=== PATIENT | male | born 1960 | race Caucasian/White ===

== ENCOUNTER 2022-08-23 04:17 | Inpatient (IN) | payer MEDICARE, SELFPAY ==
[2022-08-23] VITALS (49 sets, daily range): BP systolic 114–146; BP diastolic 74–116; PULSE 90–141; RESP 17–48; TEMP 36.3–37; O2SAT 87–100; BMI 41.6; BMI 48.5
--- NOTE | 2022-08-23 04:23 | ECG_ITS ---
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
--- NOTE | 2022-08-23 04:23 | ED.GENADUL1 ---
HPI - General Adult General Chief complaint: Overdose Stated complaint: pain Time Seen by Provider: 08/23/22 04:23 History of Present Illness HPI narrative: the patient was brought to us by the EMS for the suspected opiate and alcohol overdose, if he received a call about the patient earlier today for a call abuse but at that time the patient did not go to the Emergency Room but the son who is paraplegic cold the EMS because the patient is abusing alcohol. All day, upon arrival the patient was not conscious and he was provided with Narcan according to the EMS and he woke up after it. Presenting to us patient is not fully a week although he only responds to painful stimuli is not able to provide us with any history, when painful stimuli induced the patient move his arms and on and move his head but he does not speak The patient review of systems able to be obtained due to the patient's clinical condition Related Data Allergies Allergy/AdvReac Type Severity Reaction Status Date / Time Unable to Assess Allergy Verified 08/23/22 06:55 Exam Narrative Exam Narrative: Nurses notes and vital signs reviewed and patient is not hypoxic. General: the patient is disheveled sleepy and his left eye shows obvious conjunctivitis Skin: dry mucous membrane with skin that is dry with multiple skin changes shows disheveled and lack of care No rash. Head: Normocephalic, atraumatic. Neck: Supple, non-tender. Eye: Pupils are equal, the patient left eye examination showed that she had conjunctivitis in the left lower half of the conjunctiva visit with a small abrasion to the left eyes well mostly the cornea, left lower eyelid inflammation as well Ears, Nose, Mouth, and Throat: TM are clear, no nasal mucosal hypertrophy. Oral mucosa is dry no posterior oropharynx erythema, uvula is mid-line,. very bad dental hygiene with multiple decayed teeth and obvious carries Cardiovascular: irregular Rate and Rhythm without murmur, gallop or rub. Respiratory: No accessory muscle use or respiratory distress. Lungs are clear to auscultation, no wheezing, rales or rhonchi Chest Wall: no tenderness Back: at the decubital area the patient have an area of redness concerning for a stage I ulcer is measuring almost 10 x 15 cm Musculoskeletal: normal ROM, no calf or popliteal tenderness, no lower extremity edema/swellingthe patient has skin changesthat is chronic and multiple abrasions that are healing GI: Abdomen is soft, non-distended. Normal bowel sounds. No masses appreciated. No tenderness to palpation. No rebound, guarding, or rigidity noted. Neurological: the patient [place] Coma Scale is above H as he is able to respond to painful stimuli,by moving upper extremity in both sided and moaning Constitutional Vital Signs - 24 hr 08/23/22 04:19 08/23/22 06:39 08/23/22 04:18 Temperature 97.6 F Pulse Rate 138 H Pulse Rate [Monitor] 139 H Respiratory Rate 40 H 43 H Blood Pressure 144/110 H Pulse Oximetry 98 99 99 Oxygen Delivery Method Room Air Nasal Cannula Oxygen Delivery Flow Rate 2 08/23/22 04:52 08/23/22 04:53 08/23/22 05:00 Temperature Pulse Rate 134 H 121 H 118 H Pulse Rate [Monitor] Respiratory Rate 47 H 44 H 44 H Blood Pressure 145/100 H 128/101 H Pulse Oximetry 99 99 98 Oxygen Delivery Method Oxygen Delivery Flow Rate 08/23/22 05:10 08/23/22 05:20 08/23/22 05:31 Temperature Pulse Rate 114 H 128 H 125 H Pulse Rate [Monitor] Respiratory Rate 42 H 41 H Blood Pressure 145/109 H 139/107 H 138/113 H Pulse Oximetry 98 99 89 L Oxygen Delivery Method Oxygen Delivery Flow Rate 08/23/22 05:42 08/23/22 05:50 08/23/22 06:00 Temperature Pulse Rate 126 H 116 H Pulse Rate [Monitor] Respiratory Rate 39 H Blood Pressure 136/106 H 136/92 H 132/99 H Pulse Oximetry 87 L 97 Oxygen Delivery Method Oxygen Delivery Flow Rate 08/23/22 06:16 08/23/22 06:17 08/23/22 06:21 Temperature Pulse Rate 141 H 128 H 122 H Pulse Rate [Monitor] Respiratory Rate 33 H 41 H 43 H Blood Pressure 140/116 H 134/107 H Pulse Oximetry 99 99 Oxygen Delivery Method Oxygen Delivery Flow Rate 08/23/22 06:31 Temperature Pulse Rate 114 H Pulse Rate [Monitor] Respiratory Rate 40 H Blood Pressure 122/87 H Pulse Oximetry 99 Oxygen Delivery Method Oxygen Delivery Flow Rate Course Vital Signs Vital signs: Vital Signs Pulse Rate 138 H 08/23/22 04:18 Respiratory Rate 43 H 08/23/22 04:18 Blood Pressure 144/110 H 08/23/22 04:18 Pulse Oximetry 99 08/23/22 04:18 Temperature 97.6 F 08/23/22 04:19 Pulse Rate 114 H 08/23/22 06:31 Respiratory Rate 40 H 08/23/22 06:31 Blood Pressure 122/87 H 08/23/22 06:31 Pulse Oximetry 99 08/23/22 06:39 Oxygen Delivery Method Nasal Cannula 08/23/22 06:39 Oxygen Delivery Flow Rate 2 08/23/22 06:39 Medical Decision Making MDM Narrative Medical decision making narrative: initially the patient received one dose of Narcan and in addition to the dose that he received by the EMS 2 mg,that did not help in improving his mental status the patient was moaning to painful stimuli moving his upper extremity but he was not providing history his [place] Coma Scale was still about eight and he also had a CT that shows adequate oxygenation He was put in 3 L nasal cannula as supportive care he also had a CBC that showed no acute significant pathology and the chemistry showing hypokalemia the patient ABG showed no acidosis but some alkalosis the patient had not name And he does not have an elevated alcohol level. He did have methamphetamine as well as as benzo in his system we could obtain the patient history from his last visit here was was a few years ago that time the patient has a history of atrial fibrillation and takign Xeralto 10 mg po daily EKG and they are showing atrial fibrillation with a heart rate of [address] elevation or depression was noted that the patient only had his son at home who is paraplegic according to the EMS and we tried calling his phone number available in the system and it was not valid then look into pt phone info we could find Miller phone no [phone] ----called and no set voice mail pt also had hx of seizure and closed head injury 2019 , hx of depression and PTSD and bilateral hip repalcement pt has multiple active issues Benzo abuse and possible overdose ----supportive care as Flumaznil can pt the pt at risk of seizure and he already have hx of that AMS -----possible drug abuse cause but awaiting CT head result left eye conjunctivitis ------erythromycin ointment afib with RVR ----continue diltiazem for now as pt has hx of Afib pt also has the social issue of being dissheveled and having poor home care and no adequate support at home ----decubital ulcer stage I update *------pt mental status improved as his was moaning when moved and when asked about pain in his back he is answered yes -----we tried obaitning records from [facility] and [facility] pt son ( miller ) called back ---I tried getting info about the pt presentation and he was not cooperative as he kept repeating that the pt was drinking alcohol all day and he referred to his old truck injury in 2007 , i explaiend to the son that i need to get more info as hs alcohol test was negative ,pt was rude and made rude comment the hospital and then said ( then you need to do better testing and hung up on me ) pt son did mention 2 episodes of fall in the last week where his father didnt hit his head right now awaiting the pt CT head negative for acute pathology pt case discussed with Dr Nation and he will be admitted Lab Data Labs: Lab Results 08/23/22 08/23/22 Range/Units 04:23 04:50 WBC 6.7 (4.0-11.0) 10^3/uL RBC 4.23 L (4.70-6.10) 10^6/uL Hgb 13.7 L (14.0-18.0) g/dL Hct 41.6 L (42.0-54.0) % MCV 98.3 H (80.0-94.0) fL MCH 32.4 (25.9-34.0) pg MCHC 32.9 (29.9-35.2) g/dL RDW 18.1 H (11.0-15.0) % Plt Count 363 (150-450) 10^3/uL MPV 8.6 L (9.5-13.5) fL Neut % (Auto) 65.5 (43.0-75.0) % Lymph % (Auto) 21.2 (20.5-60.0) % [place] % (Auto) 8.8 (1.7-12.0) % Eos % (Auto) 3.1 (0.9-7.0) % Baso % (Auto) 1.0 (0.2-2.0) % Neut # (Auto) 4.4 (1.4-6.5) 10^3/uL Lymph # (Auto) 1.4 (1.2-3.8) 10^3/uL [place] # (Auto) 0.6 (0.3-0.8) 10^3/uL Eos # (Auto) 0.2 (0.0-0.7) 10^3/uL Baso # (Auto) 0.1 (0.0-0.1) 10^3/uL Abs Immat Gran (auto) 0.03 (0.00-0.03) 10^3/uL Imm/Tot Granulo (auto) 0.4 (0.0-0.5) % PT 10.9 (9.0-11.6) sec INR 1.03 Puncture Site Lr ABG pH 7.484 H (7.350-7.450) ABG pCO2 36.1 (35.0-45.0) mmHg ABG pO2 79.9 L (80.0-100.0) mmHg ABG HCO3 27.1 H (22.0-26.0) mmol/L ABG O2 Saturation 97.4 % ABG Base Excess 3.7 H (-2.0-2.0) mmol/L Sj Test Positive (POSITIVE) O2 Liters/Min 1.5 Sodium 139 (136-145) mmol/L Potassium 3.1 L (3.5-5.1) mmol/L Chloride 110 H (98-107) mmol/L Carbon Dioxide 26.5 (21.0-32.0) mmol/L Anion Gap 5.6 BUN 6.0 L (7.0-18.0) mg/dL Creatinine 0.76 (0.70-1.30) mg/dL Est GFR ( Amer) >60 (>=60) Est GFR (Non-Af Amer) >60 (>=60) BUN/Creatinine Ratio 7.9 Glucose 103 (74-106) mg/dL Lactate 2.0 (0.4-2.0) mmol/L Calcium 8.4 L (8.5-10.1) mg/dL Total Bilirubin 0.8 (0.2-1.0) mg/dL AST 49 H (15-37) U/L ALT 20 (16-63) U/L Alkaline Phosphatase 97 (46-116) U/L Total Protein 7.0 (6.4-8.2) g/dL Albumin 2.7 L (3.4-5.0) g/dL Globulin 4.3 g/dL Albumin/Globulin Ratio 0.6 Salicylates <2.8 (<=19.9) mg/dL Urine Opiates Screen Negative (NEGATIVE) Ur Buprenorphine Scrn Negative (NEGATIVE) Ur Oxycodone Screen Negative (NEGATIVE) Urine Methadone Screen Negative (NEGATIVE) Ur Propoxyphene Screen Negative (NEGATIVE) Acetaminophen <2.0 L (10.0-30.0) ug/mL Ur Barbiturates Screen Negative (NEGATIVE) U Tricyclic Antidepress Negative (NEGATIVE) Ur Phencyclidine Scrn Negative (NEGATIVE) Ur Amphetamines Screen Negative (NEGATIVE) U Methamphetamines Scrn Positive A (NEGATIVE) U Benzodiazepines Scrn Positive A (NEGATIVE) Urine Cocaine Screen Negative (NEGATIVE) U Cannabinoids Screen Positive A (NEGATIVE) Ethanol Quant <3 mg/dL ECG Data Attestation: I personally reviewed and interpreted this ECG as follows: Interpretation: afib with RVR with heart rate of [address] elevation or depression Critical Care Time Critical Care Time Critical Care Time: Yes Total Critical Care Time: 60 Attestation: multple checks due to AMS Discharge Plan Discharge Chief Complaint: Overdose Clinical Impression: Benzodiazepine abuse, Acute conjunctivitis, left eye, Methamphetamine abuse, AMS (altered mental status), Acute hypokalemia Patient Disposition: Admitted As Inpatient Time of Disposition Decision: 07:03 Condition: Fair Referrals: HERBIE ELLINGTON [Primary Care Provider] - 1 week
[2022-08-23] MEDS: NALOXONE HCL 2 MG/2 ML SYRINGE IV (04:25)
--- NOTE | 2022-08-23 04:30 | XR_ITS ---
The [address] [address] Patient Name: CECY ZAIDI MRN: [id number] date: 1960 Sex: M Assigned Patient Location: ER Current Patient Location: ER Accession/Order Number: [id number] Exam Date: 08/23/2022 04:45 Report Date: 08/23/2022 05:38 At the request of: JARED HAQUE Procedure: XR chest 1V EXAM: XR chest 1V HISTORY: AMS COMPARISON: 03/27/2021. TECHNIQUE: Chest X-ray, 1 view. FINDINGS: The patient is rotated which limits comparison. Support devices: Right jugular approach intravenous catheter terminates near the cavoatrial junction. Lungs/pleura: Low volumes accentuate the lung markings. No definite consolidation, effusion, or pneumothorax. Heart and mediastinum: Tortuous and calcified thoracic aorta. Slightly more prominent cardiac and mediastinal contours. Low lung volumes with prominence of the lung markings. No dense consolidation or effusion. Bones: No acute abnormality identified. IMPRESSION: 1. Low lung volumes accentuate the lung markings. Dependent hazy opacities are favored to be hypoventilatory in nature over infiltrate. 2. Mildly increased prominence of the cardiac mediastinal silhouette is likely accentuated by pulmonary hypoexpansion. Repeat examination in neutral position could exclude mediastinal pathology. Electronically authenticated by: KYRIE TOPETE Date: 08/23/2022 05:38
[2022-08-23 04:48] LABS: Basophils Absolute Auto 0.1 10^3/uL (0.0-0.1); Eosinophils Absolute Auto 0.2 10^3/uL (0.0-0.7); Eosinophils Percent Auto 3.1 % (0.9-7.0); Hematocrit 41.6 % (42.0-54.0); Hemoglobin 13.7 g/dL (14.0-18.0); Immature Granulocytes Abs Auto 0.03 10^3/uL (0.00-0.03); Immature Granulocytes Pct Auto 0.4 % (0.0-0.5); Lymphocytes Absolute Auto 1.4 10^3/uL (1.2-3.8); Lymphocytes Percent Auto 21.2 % (20.5-60.0); Mean Corpuscular HGB Conc 32.9 g/dL (29.9-35.2); Mean Corpuscular Hemoglobin 32.4 pg (25.9-34.0); Mean Corpuscular Volume 98.3 fL (80.0-94.0); Mean Platelet Volume 8.6 fL (9.5-13.5); Monocytes Absolute Auto 0.6 10^3/uL (0.3-0.8); Monocytes Percent Auto 8.8 % (1.7-12.0); Neutrophils Absolute Auto 4.4 10^3/uL (1.4-6.5); Neutrophils Percent Auto 65.5 % (43.0-75.0); Platelet Count 363 10^3/uL (150-450); Red Blood Count 4.23 10^6/uL (4.70-6.10); Red Cell Distribution Width 18.1 % (11.0-15.0); White Blood Count 6.7 10^3/uL (4.0-11.0)
[2022-08-23 04:55] LABS: ABG PCO2 36.1 mmHg (35.0-45.0); Base Excess ABG 3.7 mmol/L (-2.0-2.0); HCO3 ABG 27.1 mmol/L (22.0-26.0); Oxygen Saturation ABG 97.4 %; PO2 ABG 79.9 mmHg (80.0-100.0); pH ABG 7.484 (7.350-7.450)
[2022-08-23 04:56] LABS: Allen Test POSITIVE (POSITIVE); Liters per Minute 1.5; O2 Mode NASAL CANNULA; Puncture Site LR
[2022-08-23 04:59] LABS: Ethanol <3 mg/dL
[2022-08-23] MEDS: 0.9 % SODIUM CHLORIDE 1,000 ML 999 ML (05:00)
[2022-08-23 05:03] LABS: Anion Gap 5.6; Carbon Dioxide 26.5 mmol/L (21.0-32.0); Chloride 110 mmol/L (98-107); Glucose 103 mg/dL (74-106); Potassium 3.1 mmol/L (3.5-5.1); Salicylate <2.8 mg/dL (<=19.9); Sodium 139 mmol/L (136-145)
[2022-08-23 05:04] LABS: Alanine Aminotransferase 20 U/L (16-63); Albumin Globulin Ratio 0.6; Albumin Level 2.7 g/dL (3.4-5.0); Alkaline Phosphatase 97 U/L (46-116); Aspartate Amino Transferase 49 U/L (15-37); BUN Creatinine Ratio 7.9; Bilirubin Total 0.8 mg/dL (0.2-1.0); Calcium 8.4 mg/dL (8.5-10.1); Cannabinoid Screen Urine POSITIVE (NEGATIVE); Estimated GFR (African America >60 (>=60); Estimated GFR (Non-African Ame >60 (>=60); Globulin 4.3 g/dL; Phencyclidine Screen Urine NEGATIVE (NEGATIVE)
[2022-08-23 05:05] LABS: Amphetamine Screen Urine NEGATIVE (NEGATIVE); Barbiturates Screen Urine NEGATIVE (NEGATIVE); Benzodiazepines Screen Urine POSITIVE (NEGATIVE); Buprenorphine Screen Urine NEGATIVE (NEGATIVE); Cocaine Screen Urine NEGATIVE (NEGATIVE); Methadone Screen Urine NEGATIVE (NEGATIVE); Methamphetamines Screen Urine POSITIVE (NEGATIVE); Opiate Screen Urine NEGATIVE (NEGATIVE); Oxycodone Screen Urine NEGATIVE (NEGATIVE); Tricyclic Antidepressant Urine NEGATIVE (NEGATIVE)
--- NOTE | 2022-08-23 05:06 | PC.NURSE ---
ems called yesterday morning for patient drinking. patient [id number] to come to ER. son called ems now patient was lathargic. ems gave 0.5mg narcan. they state patient has been drinking all day. patient arrived at ER unresponsive. patient makes some jerking movements with pain ( abgs, Iv start). patient has increased respirations with thick oral secretions and what apears to be chewing tobacco. Patient was suctioned, LAbs drawn, second IV site obtained, EKG and cardiac monitorinf, placed on 2l nasal cannnula, 2mg narcan given IV. Rashid was placed with UA obtained. NS 0.9%
[2022-08-23 05:10] LABS: Acetaminophen <2.0 ug/mL (10.0-30.0)
--- NOTE | 2022-08-23 05:10 | CT_ITS ---
The [address] [address] Patient Name: CECY ZAIDI MRN: [id number] date: 1960 Sex: M Assigned Patient Location: ER Current Patient Location: ER Accession/Order Number: [id number] Exam Date: 08/23/2022 06:10 Report Date: 08/23/2022 06:34 At the request of: JARED HAQUE Procedure: CT head/brain wo con INDICATION: 62 years old; Male. Change in mental status. History of alcohol and drug use. TECHNIQUE: CT Head (ax/cor/sag reformats). Ionizing radiation dose reduced via iterative reconstruction/FBP blend and body size kV/mA adjustment. Comparison: None FINDINGS: POSTOPERATIVE CHANGES: BP shunt catheter noted which enters from the right posteriorly and projects through the atrium and body of the right lateral ventricle. The tip is noted in the body of the left lateral ventricle. The ventricular system is nondilated. BRAIN PARENCHYMA: There is bilateral frontal encephalomalacia. This pattern is most consistent with old trauma. No intraparenchymal or extra-axial hemorrhage. No mass effect. No midline shift or herniation. Normal hunt/white differentiation. VENTRICLES/EXTRA-AXIAL SPACES: Nondilated. SINUSES/MASTOIDS: Mucoperiosteal thickening in the frontal and ethmoid sinuses on the left. Mucoperiosteal thickening in the left maxillary sinus. There is soft tissue thickening of the nasal turbinates on the left. Secretions are present in the nasopharynx. Nasal septal deviation to the right with spur formation. Mastoid air cells are clear. MSK: No displaced or depressed calvarial fracture is noted. There is an incomplete lucency present within the occipital bone on the left which may represent an old healed fracture. OTHER: No hyperdense intraluminal thrombus is seen. IMPRESSION: 1. No acute intracranial abnormality. No hemorrhage or mass effect. 2. Bifrontal encephalomalacia. 3. Ventricular catheter enters from the right projects through the body the right lateral ventricle with its tip in the body of the left lateral ventricle. The ventricular system is nondilated. Electronically authenticated by: DIDIER STONE Date: 08/23/2022 06:34
--- NOTE | 2022-08-23 05:23 | PC.NURSE ---
Ems was called to the home yesterday morning for patient drinking. patient refused transport to the hospital at that time. Son called EMS this morning because patient was lethargic. According to EMS patient son stated patient had been drinking all day and does heroin. Ems started a line in the Right hand and gave 0.5mg IV narcan. Patient arrived to the ER unresponsive, patient makes some jerking movements with pain (iv start, abg). 2nd line was established, blood obtained. Rashid placed and UA obtained. EKG obtained and patient placed on cardiac monitoring. Placed on 2l NC, 2mg IV narcan given. Rashid was placed and UA obtained. NS 0.9% IV hung.
[2022-08-23 05:25] LABS: INR 1.03; Prothrombin Time 10.9 sec (9.0-11.6)
--- NOTE | 2022-08-23 06:28 | PC.NURSE ---
small bugs noted crawling and jumping on patient. staff gowned before taking patient to CT. Patient yelled ouch, my back when being moved from CT to bed. patient then did not respond to voice only painful stimuli
[2022-08-23] MEDS: ERYTHROMYCIN OP OINT 0.5% 1 GM TUBE OP (07:07)
[2022-08-23] MEDS: 0.9 % SODIUM CHLORIDE 1,000 ML 1000 ML IV (07:18)
[2022-08-23 07:39] LABS: Bilirubin Urine NEGATIVE (NEGATIVE); Blood Urine NEGATIVE (NEGATIVE); Clarity Urine CLEAR (CLEAR); Color Urine LT. YELLOW (YELLOW); Glucose Urine UA NEGATIVE (NEGATIVE); Ketones Urine NEGATIVE (NEGATIVE); Leukocyte Esterase Urine NEGATIVE (NEGATIVE); Nitrite Urine NEGATIVE (NEGATIVE); Protein Urine NEGATIVE (NEG/TRACE); Specific Gravity Urine <=1.005 (1.005-1.025); Urobilinogen Urine 0.2 EU/dL (0.2-1.0); pH Urine 6.5 (5.0-9.0)
[2022-08-23 07:42] LABS: Urine Microscopic Indicated NO
--- NOTE | 2022-08-23 09:26 | PC.NURSE ---
Pt arrived from ED with RN, no family to assist with answering questions. Pt does respond to painful touch, able to state having lower abdominal pain that is ongoing. Lethargic and difficult to keep awake. Respirations are abdominal open mouth with abdominal muscle usage. Speech is garbled, does state he used alcohol and marijuana but nothing hard , was unable to elaborate further. Not able to complete all questions for admission assessment.
[2022-08-23] MEDS: ENOXAPARIN SODIUM 40 MG/0.4 ML SYRINGE SUBQ (09:38)
[2022-08-23] MEDS: LACTATED RINGER'S SOLUTION 1,000 ML 125 ML IV ×2 (09:38→17:19)
--- NOTE | 2022-08-23 10:09 | PC.NURSE ---
Pt non verbal and unable to obtain information.
--- NOTE | 2022-08-23 10:53 | PC.NURSE ---
Cleansed with water and soap, applied barrier cream. Positioned to side with pillows.
--- NOTE | 2022-08-23 14:01 | P.HP_ITS ---
H&P: HPI History of Present Illness Chief complaint: pain Narrative: Patient was brought into ED for suspected polysubstance use and drug overdose. EMS was called by his son who is paraplegic for possible drug overdose by the patient. At home, patient was unresponsive and woke up right away after Narcan given my EMT. Patient was also reportedly drinking heavily. On w/u in ED, he was in afib with RVR, unresponsive and would wake up after narcan administration and go back right away to deep sleep. He was also noted to be disheveled, with poor hygiene, fleas noted on his cloths and skin, and also had evidence of left eye conjunctivitis. Patient's urine tested positive for Methamphetamine, THC and benzodiazepines but when he woke up briefly, he admitted to using Fentanyl too. When I evaluated him in ICU - he was comfortable, obtunded and I was unable to obtain any meaningful information from him. Review of Systems ROS Status of ROS unobtainable due to mental status [facility] Medical History (Updated 08/23/22 @ 14:22 by Shaikh Rios MD) Social History (Updated 08/23/22 @ 14:09 by Shaikh Rios MD) Within the past year, how often did you have a drink containing alcohol: 4 or more times a week Within the past year, how many standard drinks containing alcohol did you have on a typical day: 10 or more Within the past year, how often did you have six or more drinks on one occasion: daily or almost daily Total score: 12 Score interpretation: A score of 4 or more indicates drinking is likely to affect patient's safety. Smoking status: Current every day smoker Non-prescribed substance use: cannabis (any form), crack/cocaine, amphetamines/methamphetamines, sedatives/tranquilizers and opiods/painkillers Meds Home Medications and Allergies Allergies Allergy/AdvReac Type Severity Reaction Status Date / Time Unable to Assess Allergy Verified 08/23/22 06:55 Exam Constitutional Vital Signs - 24 hr 08/23/22 04:19 08/23/22 06:39 08/23/22 04:18 Temperature 97.6 F Pulse Rate 138 H Pulse Rate [Monitor] 139 H Respiratory Rate 40 H 43 H Blood Pressure 144/110 H Blood Pressure [Left Arm] Pulse Oximetry 98 99 99 Oxygen Delivery Method Room Air Nasal Cannula Oxygen Delivery Flow Rate 2 08/23/22 04:52 08/23/22 04:53 08/23/22 05:00 Temperature Pulse Rate 134 H 121 H 118 H Pulse Rate [Monitor] Respiratory Rate 47 H 44 H 44 H Blood Pressure 145/100 H 128/101 H Blood Pressure [Left Arm] Pulse Oximetry 99 99 98 Oxygen Delivery Method Oxygen Delivery Flow Rate 08/23/22 05:10 08/23/22 05:20 08/23/22 05:31 Temperature Pulse Rate 114 H 128 H 125 H Pulse Rate [Monitor] Respiratory Rate 42 H 41 H Blood Pressure 145/109 H 139/107 H 138/113 H Blood Pressure [Left Arm] Pulse Oximetry 98 99 89 L Oxygen Delivery Method Oxygen Delivery Flow Rate 08/23/22 05:42 08/23/22 05:50 08/23/22 06:00 Temperature Pulse Rate 126 H 116 H Pulse Rate [Monitor] Respiratory Rate 39 H Blood Pressure 136/106 H 136/92 H 132/99 H Blood Pressure [Left Arm] Pulse Oximetry 87 L 97 Oxygen Delivery Method Oxygen Delivery Flow Rate 08/23/22 06:16 08/23/22 06:17 08/23/22 06:21 Temperature Pulse Rate 141 H 128 H 122 H Pulse Rate [Monitor] Respiratory Rate 33 H 41 H 43 H Blood Pressure 140/116 H 134/107 H Blood Pressure [Left Arm] Pulse Oximetry 99 99 Oxygen Delivery Method Oxygen Delivery Flow Rate 08/23/22 06:31 08/23/22 06:31 08/23/22 06:41 Temperature Pulse Rate 114 H 129 H 110 H Pulse Rate [Monitor] Respiratory Rate 40 H 40 H 42 H Blood Pressure 122/87 H 122/87 H 117/93 H Blood Pressure [Left Arm] Pulse Oximetry 99 99 99 Oxygen Delivery Method Oxygen Delivery Flow Rate 08/23/22 06:51 08/23/22 07:00 08/23/22 07:12 Temperature Pulse Rate 109 H 113 H 117 H Pulse Rate [Monitor] Respiratory Rate 42 H 39 H 43 H Blood Pressure 133/97 H 129/101 H 119/84 H Blood Pressure [Left Arm] Pulse Oximetry 99 98 99 Oxygen Delivery Method Oxygen Delivery Flow Rate 08/23/22 07:20 08/23/22 07:31 08/23/22 07:41 Temperature Pulse Rate 111 H 106 H 120 H Pulse Rate [Monitor] Respiratory Rate 38 H 38 H 38 H Blood Pressure 146/101 H 135/110 H 130/99 H Blood Pressure [Left Arm] Pulse Oximetry 96 96 96 Oxygen Delivery Method Oxygen Delivery Flow Rate 08/23/22 07:51 08/23/22 08:00 08/23/22 08:10 Temperature Pulse Rate 109 H 118 H 121 H Pulse Rate [Monitor] Respiratory Rate 39 H 36 H 38 H Blood Pressure 142/96 H 129/111 H 146/106 H Blood Pressure [Left Arm] Pulse Oximetry 97 96 96 Oxygen Delivery Method Oxygen Delivery Flow Rate 08/23/22 08:10 08/23/22 09:00 08/23/22 09:10 Temperature 97.8 F Pulse Rate 123 H 111 H Pulse Rate [Monitor] 110 H Respiratory Rate 40 H 32 H 32 H Blood Pressure 146/106 H Blood Pressure [Left Arm] 126/99 H Pulse Oximetry 97 98 98 Oxygen Delivery Method Nasal Cannula Nasal Cannula Oxygen Delivery Flow Rate 2 2 08/23/22 09:57 08/23/22 08:50 08/23/22 10:59 Temperature Pulse Rate 104 H 119 H Pulse Rate [Monitor] 104 H Respiratory Rate 32 H Blood Pressure Blood Pressure [Left Arm] Pulse Oximetry 98 96 Oxygen Delivery Method Oxygen Delivery Flow Rate 08/23/22 12:17 08/23/22 12:22 08/23/22 12:22 Temperature 98.6 F Pulse Rate 97 H 103 H Pulse Rate [Monitor] 103 H Respiratory Rate 24 24 Blood Pressure Blood Pressure [Left Arm] 114/81 H Pulse Oximetry 100 99 Oxygen Delivery Method Nasal Cannula Oxygen Delivery Flow Rate 2 08/23/22 08:21 08/23/22 08:43 08/23/22 08:46 Temperature Pulse Rate 118 H 119 H 114 H Pulse Rate [Monitor] Respiratory Rate 26 H 45 H 32 H Blood Pressure 129/107 H 126/99 H Blood Pressure [Left Arm] Pulse Oximetry 98 97 Oxygen Delivery Method Oxygen Delivery Flow Rate 2 08/23/22 08:46 08/23/22 12:01 08/23/22 13:06 Temperature Pulse Rate 126 H 106 H 93 H Pulse Rate [Monitor] Respiratory Rate 48 H 31 H Blood Pressure 114/88 H Blood Pressure [Left Arm] Pulse Oximetry 99 99 Oxygen Delivery Method Oxygen Delivery Flow Rate Documenting provider has reviewed patient's vital signs: yes Exam limitations: altered mental status General appearance: disheveled Nutritional appearance: obese Orientation/consciousness: Yes obtunded HENMT Common normals: normocephalic and head/scalp atraumatic Eye General eye: other (left eye red/with purulence noted on exam ) Conjunctiva: conjunctiva abnormal left Respiratory Common normals: normal respiratory effort, no use of accessory muscles and clear to auscultation bilaterally Other: audible upper airway secretions requiring oral suction Cardio Common normals: S1 normal heart sound, S2 normal heart sound and no murmurs Rhythm: abnormal rhythm irregularly irregular GI Common normals: Normal to inspection, nondistended, normoactive bowel sounds present, soft to palpation, non-tender and no hepatosplenomegaly Neuro Yolanda Coma Scale: document GCS findings Yolanda coma scale eye opening: To sound Yolanda coma scale verbal response: Confused Yolanda coma scale motor response: None Noble coma scale total score: 8 Common normals: moves all extremities Sensorium/orientation: obtunded Meningeal signs: no meningeal signs Speech: abnormal speech Psych Appearance: unkempt and disheveled Speech: incoherent Thought process: confused Insight: poor Judgement: poor Results Labs Labs: Short CBC 08/23/22 Range/Units 04:23 WBC 6.7 (4.0-11.0) 10^3/uL Hgb 13.7 L (14.0-18.0) g/dL Hct 41.6 L (42.0-54.0) % Plt Count 363 (150-450) 10^3/uL BMP 08/23/22 04:23 Sodium 139 Potassium 3.1 L Chloride 110 H Carbon Dioxide 26.5 BUN 6.0 L Creatinine 0.76 Glucose 103 Calcium 8.4 L Liver Function 08/23/22 Range/Units 04:23 Total Bilirubin 0.8 (0.2-1.0) mg/dL AST 49 H (15-37) U/L ALT 20 (16-63) U/L Alkaline Phosphatase 97 (46-116) U/L Albumin 2.7 L (3.4-5.0) g/dL Urine 08/23/22 Range/Units 04:33 Urine Color Lt. yellow (YELLOW) Urine Clarity Clear (CLEAR) Urine pH 6.5 (5.0-9.0) Ur Specific [place] <=1.005 A (1.005-1.025) Urine Protein Negative (NEG/TRACE) mg/dL Urine Glucose (UA) Negative (NEGATIVE) mg/dL ABG ABG results: 08/23/22 04:50 ABG pH 7.484 H ABG pCO2 36.1 ABG pO2 79.9 L ABG HCO3 27.1 H ABG O2 Saturation 97.4 ABG Base Excess 3.7 H Assessment and Plan Assessment and Plan (1) Polysubstance overdose: Assessment and Plan: Unclear whether intentional or accidental but no report of suicidal ideation. Will need to d/w patient once he is awake enough. Monitor closely, neuro checks. No evidence of withdrawal currently but need to be monitor closely for it. Qualifiers: Encounter type: subsequent encounter Injury intent: accidental or unintentional Qualified Code(s): T50.901D - Poisoning by unspecified drugs, medicaments and biological substances, accidental (unintentional), subsequent en counter (2) AMS (altered mental status): Assessment and Plan: Obtunded, GCS is 8, from polysubstance abuse and overdose. Monitor closely for withdrawal. Qualifiers: Altered mental status type: unspecified Qualified Code(s): R41.82 - Altered mental status, unspecified (3) Afib: Assessment and Plan: Prior hx of Afib, and was on Xarelto for AC Started on Cardizem today. Had rapid afib in ED. Rate is better now. Qualifiers: Atrial fibrillation type: paroxysmal Qualified Code(s): I48.0 - Paroxysmal atrial fibrillation (4) Depression with anxiety: Assessment and Plan: It does not seem like he is on any medications. Will need social media designer and care co ordination for discharge planning to enable him get the help he needs (5) Seizure disorder: Assessment and Plan: Monitor closely for seizures. Does not seem like he is on any AED as outpaitent. Patient is not awake enough to provide any details (6) Traumatic brain injury: Assessment and Plan: Unsure of details. Qualifiers: Encounter type: sequela Loss of consciousness presence/duration: unknown LOC status Qualified Code(s): S06.9XAS - Unspecified intracranial injury with loss of consciousness status unknown, sequela (7) Acute conjunctivitis, left eye: Assessment and Plan: unclear and unsure of details. Will c/w ofloxacin eye drops. Qualifiers: Acute conjunctivitis type: bacterial Qualified Code(s): H10.32 - Unspecified acute conjunctivitis, left eye
[2022-08-23] MEDS: HYDROXYZINE HCL 25 MG TABLET 50 MG PO (14:41)
[2022-08-23] MEDS: DILTIAZEM HCL 240 MG CAP.ER.24H PO (14:41)
[2022-08-23 15:31] LABS: Glucometer 96 mg/dL (74-106)
--- NOTE | 2022-08-23 18:13 | NUTR.NU ---
1700 1720-attempted to call pharmacy for eye ointment, no response x2.
[2022-08-23] MEDS: ACETAMINOPHEN 325 MG TABLET 650 MG PO (19:48)
[2022-08-23] MEDS: HALOPERIDOL LACTATE 5 MG/ML VIAL IV (21:11)
[2022-08-23 21:15] LABS: Glucometer 115 mg/dL (74-106)
--- NOTE | 2022-08-23 22:24 | PC.NURSE ---
Marino cath removed at 1900 after pt complaining and swearing at the staff about pain from marino. Dr Buchanan contacted via tiger text and order obtained to remove marino. Catheter intact. Brief placed for any incontinence. Pt told to contact staff for help when feels need to void. Pts joshua area and abd fold areas cleanse. Areas are red. Powder applied to areas after cleansed and dried thoroughly.
[2022-08-24] VITALS (7 sets, daily range): BP systolic 124–147; BP diastolic 72–107; PULSE 67–101; RESP 16–30; TEMP 36.2–36.3; O2SAT 91–96
[2022-08-24] MEDS: LACTATED RINGER'S SOLUTION 1,000 ML 125 ML IV ×2 (01:54→09:14)
[2022-08-24 05:01] LABS: Basophils Percent Auto 0.8 % (0.2-2.0); Eosinophils Absolute Auto 0.2 10^3/uL (0.0-0.7); Eosinophils Percent Auto 4.6 % (0.9-7.0); Hematocrit 38.6 % (42.0-54.0); Hemoglobin 12.2 g/dL (14.0-18.0); Immature Granulocytes Abs Auto 0.02 10^3/uL (0.00-0.03); Immature Granulocytes Pct Auto 0.4 % (0.0-0.5); Lymphocytes Absolute Auto 1.5 10^3/uL (1.2-3.8); Lymphocytes Percent Auto 30.6 % (20.5-60.0); Mean Corpuscular HGB Conc 31.6 g/dL (29.9-35.2); Mean Corpuscular Volume 101.3 fL (80.0-94.0); Mean Platelet Volume 8.8 fL (9.5-13.5); Monocytes Absolute Auto 0.4 10^3/uL (0.3-0.8); Neutrophils Absolute Auto 2.8 10^3/uL (1.4-6.5); Neutrophils Percent Auto 55.6 % (43.0-75.0); Platelet Count 306 10^3/uL (150-450); Red Blood Count 3.81 10^6/uL (4.70-6.10); Red Cell Distribution Width 18.6 % (11.0-15.0)
[2022-08-24 05:17] LABS: Alanine Aminotransferase 13 U/L (16-63); Albumin Globulin Ratio 0.6; Albumin Level 2.1 g/dL (3.4-5.0); Alkaline Phosphatase 67 U/L (46-116); Aspartate Amino Transferase 24 U/L (15-37); BUN Creatinine Ratio 6.2; Bilirubin Total 0.6 mg/dL (0.2-1.0); Carbon Dioxide 29.6 mmol/L (21.0-32.0); Chloride 107 mmol/L (98-107); Estimated GFR (African America >60 (>=60); Estimated GFR (Non-African Ame >60 (>=60); Globulin 3.5 g/dL; Glucose 91 mg/dL (74-106); Potassium 3.6 mmol/L (3.5-5.1); Sodium 141 mmol/L (136-145); Total Protein 5.6 g/dL (6.4-8.2)
[2022-08-24] MEDS: ENOXAPARIN SODIUM 40 MG/0.4 ML SYRINGE SUBQ (09:12)
[2022-08-24 10:59] LABS: Glucometer 93 mg/dL (74-106)
--- NOTE | 2022-08-24 12:00 | CM.NOTE ---
Rounds made with Dr. Nation. Lives at home with son. House is equipped with wheelchair ramp. Also has a wheelchair at home that he can use if needed. Await PT assessment to determine discharge needs.
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
--- NOTE | 2022-08-26 10:14 | CM.DCFOLLOWU ---
Person spoke with: How are you feeling? well How is your pain? N/A Did you understand your discharge instructions? yes Do you have any questions about your discharge instructions? no Were you given any prescriptions at discharge? yes Were you able to get your prescriptions filled? yes Do you understand how to take your medications as ordered? yes Do you have any questions about your follow up appointment and do you plan to keep your follow up appointment? Is there anything else that you would like to discuss? No Questions/Comments/Concerns/Other: Reema RIZZO reached out to patient and they will be coming out to see patient today.
== END 2022-08-24 13:38 | disposition home health service (06) | DRG 918 ==
LOC: ER 07:04 → ICU 08:18
PROVIDERS: Emergency Medicine; Admitting Provider Internal Medicine; Emergency Provider Emergency Medicine; PCP Family Medicine; Visit Provider Internal Medicine
DX: T43.651A Poisoning by methamphetamines accidental (unintentional), initial encounter (principal); T42.4X1A Poisoning by benzodiazepines, accidental (unintentional), initial encounter; T40.711A Poisoning by cannabis, accidental (unintentional), initial encounter; T40.411A Poisoning by fentanyl or fentanyl analogs, accidental (unintentional), initial encounter; F17.210 Nicotine dependence, cigarettes, uncomplicated; R41.82 Altered mental status, unspecified; I48.0 Paroxysmal atrial fibrillation; F32.A Depression, unspecified; F41.9 Anxiety disorder, unspecified; G40.909 Epilepsy, unspecified, not intractable, without status epilepticus; H10.32 Unspecified acute conjunctivitis, left eye; I44.30 Unspecified atrioventricular block; S06.9X9S Unspecified intracranial injury with loss of consciousness of unspecified duration, sequela; R53.1 Weakness; F10.10 Alcohol abuse, uncomplicated; L89.101 Pressure ulcer of unspecified part of back, stage 1; Z96.643 Presence of artificial hip joint, bilateral; Z91.81 History of falling; Z79.01 Long term (current) use of anticoagulants
CPT/HCPCS: 36415; 36600; 51798; 70450; 71045; 80048; 80053; 80179; 80307; 80320; 80329; 81003; 82805; 83605; 85025; 85610; 93005; 94761; 96361; 96372; 96374; 96375; 97162; 97165; 97530; 99285

== ENCOUNTER 2022-10-31 09:44 | Outpatient (OUT) | payer MEDICARE, SELFPAY ==
[2022-10-31 10:39] LABS: Basophils Absolute Auto 0.1 10^3/uL (0.0-0.1); Basophils Percent Auto 0.8 % (0.2-2.0); Eosinophils Absolute Auto 0.3 10^3/uL (0.0-0.7); Eosinophils Percent Auto 4.2 % (0.9-7.0); Hematocrit 41.9 % (42.0-54.0); Hemoglobin 13.5 g/dL (14.0-18.0); Immature Granulocytes Abs Auto 0.02 10^3/uL (0.00-0.03); Immature Granulocytes Pct Auto 0.3 % (0.0-0.5); Lymphocytes Absolute Auto 1.8 10^3/uL (1.2-3.8); Lymphocytes Percent Auto 28.1 % (20.5-60.0); Mean Corpuscular HGB Conc 32.2 g/dL (29.9-35.2); Mean Corpuscular Hemoglobin 30.1 pg (25.9-34.0); Mean Corpuscular Volume 93.5 fL (80.0-94.0); Mean Platelet Volume 9.3 fL (9.5-13.5); Monocytes Absolute Auto 0.6 10^3/uL (0.3-0.8); Monocytes Percent Auto 9.1 % (1.7-12.0); Neutrophils Absolute Auto 3.7 10^3/uL (1.4-6.5); Neutrophils Percent Auto 57.5 % (43.0-75.0); Platelet Count 324 10^3/uL (150-450); Red Blood Count 4.48 10^6/uL (4.70-6.10); Red Cell Distribution Width 15.2 % (11.0-15.0); White Blood Count 6.4 10^3/uL (4.0-11.0)
[2022-10-31 11:29] LABS: Alanine Aminotransferase 17 U/L (16-63); Albumin Globulin Ratio 0.8; Albumin Level 3.2 g/dL (3.4-5.0); Alkaline Phosphatase 77 U/L (46-116); Anion Gap 12.3; Aspartate Amino Transferase 17 U/L (15-37); BUN Creatinine Ratio 11.6; Bilirubin Total 0.7 mg/dL (0.2-1.0); Calcium 8.8 mg/dL (8.5-10.1); Carbon Dioxide 26.5 mmol/L (21.0-32.0); Chloride 103 mmol/L (98-107); Chol HDL Ratio 2.8; Cholesterol 110 mg/dL (<=200); Estimated GFR (African America >60 (>=60); Estimated GFR (Non-African Ame >60 (>=60); Globulin 4.1 g/dL; Glucose 105 mg/dL (74-106); HDL Cholesterol 39 mg/dL (40-60); Potassium 3.8 mmol/L (3.5-5.1); Sodium 138 mmol/L (136-145); Thyroid Stimulating Hormone 4.545 uIU/mL (0.358-3.740); Total Protein 7.3 g/dL (6.4-8.2); Triglycerides 80 mg/dL (<=150)
== END 2022-10-31 09:45 | disposition home or self-care (01) ==
LOC: LAB 09:47
PROVIDERS: PCP Family Medicine; Visit Provider Family Medicine
DX: E78.5 Hyperlipidemia, unspecified (principal)
CPT/HCPCS: 36415; 80053; 80061; 84443; 85025

== ENCOUNTER 2024-10-21 11:11 | Emergency (ER) | payer MEDICARE, SELFPAY ==
[2024-10-21] VITALS (63 sets, daily range): BP systolic 93–138; BP diastolic 74–92; PULSE 85–156; TEMP 37.1; O2SAT 83–100; BMI 24.4
--- NOTE | 2024-10-21 11:20 | ECG_ITS ---
The [facility] Test Date: 2024-10-21 Pat Name: CECY ZAIDI Department: Room: - Gender: Male Chief Privacy Officer: : 1960 Requested By: [id number] Order Number: [id number] Reading MD: HAYDEN ROJAS M.D. Measurements Intervals [place] Rate: 128 P: -90850 OR: -48791 QRS: -53 QRSD: 78 T: 43 QT: 296 QTc: 372 Interpretive Statements 10177 Atrial fibrillation with rapid ventricular response 3633 Inferior myocardial infarction, probably old 8003 Consistent with pulmonary disease 8102 Low QRS voltage in chest leads 9150 abnormal ECG Compared to ECG 08/23/2022 04:20:25 Myocardial infarct finding now present Low QRS voltage now present Left anterior fascicular block no longer present ST (T wave) deviation no longer present Electronically Signed On 10-21-2024 20:26:25 EDT by HAYDEN ROJAS M.D.
--- NOTE | 2024-10-21 11:21 | CT_ITS ---
The [address] [address] Patient Name: CECY ZAIDI MRN: [id number] date: 1960 Sex: M Assigned Patient Location: ED.MAIN Current Patient Location: ER Accession/Order Number: [id number] Exam Date: 10/21/2024 12:02 Report Date: 10/21/2024 12:04 At the request of: JARED HAQUE MD Procedure: CT head/brain wo con CT BRAIN WITHOUT CONTRAST: CLINICAL HISTORY: Fall. Mental status changes. COMPARISON: CT brain 08/23/2022 TECHNIQUE: Contiguous axial unenhanced images were obtained through the brain. This CT exam was performed using one or more following dose reduction techniques: Automated exposure control, adjustment of the mA and/or kV according to patient size, or use of iterative reconstruction technique. 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 Right-sided GEOSCIENCE SPECIALIST shunt with tip involving the left lateral ventricle unchanged from the prior study. Posterior fossa appears unremarkable. Visualized intraorbital contents demonstrate no acute findings. Visualized paranasal sinuses are clear. The surrounding soft tissues are normal. CT/CT head/brain wo con IMPRESSION: NO ACUTE INTRACRANIAL ABNORMALITY. Impression dictated by: Kt Shelton Jr., D.O. 10/21/2024 12:04 PM Dictation Location: [place] [address] Electronically authenticated by: [id number] Y Date: 10/21/2024 12:04
--- NOTE | 2024-10-21 11:21 | XR_ITS ---
The [address] [address] Patient Name: CECY ZAIDI MRN: [id number] date: 1960 Sex: M Assigned Patient Location: ED.MAIN Current Patient Location: ER Accession/Order Number: [id number] Exam Date: 10/21/2024 12:01 Report Date: 10/21/2024 12:02 At the request of: JARED HAQUE MD Procedure: XR chest 1V Single view chest: CLINICAL HISTORY: ams COMPARISON: Chest 08/23/2022 FINDINGS: Cardiomegaly. Lungs are clear. No free air. Presumed right-sided VALVE INSPECTOR shunt tubing. XR/XR chest 1V IMPRESSION: CARDIOMEGALY WITHOUT ACUTE PROCESS. Impression dictated by: Deanna Maynard Jr.OSvetlana 10/21/2024 12:02 PM Dictation Location: [place] [address] Electronically authenticated by: [id number] Y Date: 10/21/2024 12:02
--- NOTE | 2024-10-21 11:38 | CT_ITS ---
[facility] [id number] Patient Name: CECY ZAIDI MRN: [id number] date: 1960 Sex: M Assigned Patient Location: ER Current Patient Location: ER Accession/Order Number: [id number] Exam Date: 10/21/2024 12:04 Report Date: 10/21/2024 12:06 At the request of: JARED HAQUE MD Procedure: CT cervical spine wo con CT CERVICAL SPINE WITHOUT CONTRAST : CLINICAL HISTORY: ams COMPARISON: None TECHNIQUE: Spiral axial unenhanced images were obtained through the cervical spine. Sagittal, coronal reconstructions were also reviewed. This CT exam was performed using one or more following dose reduction techniques: Automated exposure control, adjustment of the mA and/or kV according to patient size, or use of iterative reconstruction technique. FINDINGS: Motion limits evaluation. No definitive fracture is seen. 2 right heights appear maintained. Moderate spondylosis C4-C7. Mild diffuse facet joint degenerative changes. No prevertebral soft tissue swelling is present. Visualized lung apices demonstrate no acute process. CT/CT cervical spine wo con IMPRESSION: LIMITED EVALUATION DUE TO SIGNIFICANT MOTION. NO DEFINITIVE FRACTURE IS SEEN. Impression dictated by: Kt Shelton Jr., D.O. 10/21/2024 12:06 PM Dictation Location: [facility] Electronically authenticated by: [id number] Y Date: 10/21/2024 12:06
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
[2024-10-21 11:41] LABS: Hematocrit 48.3 % (42.0-54.0); Hemoglobin 15.5 g/dL (14.0-18.0); Immature Granulocytes Abs Auto 0.04 10^3/uL (0.00-0.03); Immature Granulocytes Pct Auto 0.5 % (0.0-0.5); Lymphocytes Absolute Auto 2.2 10^3/uL (1.2-3.8); Mean Corpuscular HGB Conc 32.1 g/dL (29.9-35.2); Mean Corpuscular Hemoglobin 30.3 pg (25.9-34.0); Mean Corpuscular Volume 94.5 fL (80.0-94.0); Platelet Count 255 10^3/uL (150-450); Red Blood Count 5.11 10^6/uL (4.70-6.10); White Blood Count 8.3 10^3/uL (4.0-11.0)
[2024-10-21 11:45] LABS: Glucose Urine UA NEGATIVE (NEGATIVE)
[2024-10-21 11:53] LABS: Magnesium 1.9 mg/dL (1.8-2.4)
[2024-10-21] MEDS: DIAZEPAM 10 MG/2 ML SYRINGE 5 MG IV (11:55)
[2024-10-21 11:56] LABS: Cannabinoid Screen Urine POSITIVE (NEGATIVE); Methamphetamines Screen Urine NEGATIVE (NEGATIVE); Tricyclic Antidepressant Urine NEGATIVE (NEGATIVE)
[2024-10-21 12:00] LABS: INR 1.03; Prothrombin Time 10.9 sec (9.0-11.6)
[2024-10-21 12:04] LABS: Lactate/Lactic Acid 2.1 mmol/L (0.4-2.0)
[2024-10-21] MEDS: 0.9 % SODIUM CHLORIDE 1,000 ML 1000 ML IV (12:31)
[2024-10-21 12:49] LABS: Alanine Aminotransferase 21 U/L (16-63); Albumin Globulin Ratio 1.0; Albumin Level 4.0 g/dL (3.4-5.0); Alkaline Phosphatase 68 U/L (46-116); Anion Gap 11.7; Aspartate Amino Transferase 14 U/L (15-37); Blood Urea Nitrogen 27.0 mg/dL (7.0-18.0); Calcium 9.3 mg/dL (8.5-10.1); Carbon Dioxide 29.0 mmol/L (21.0-32.0); Chloride 107 mmol/L (98-107); Estimated GFR (African America >60 (>=60 mL/min/1.73m^2); Estimated GFR (Non-African Ame 52 (>=60 mL/min/1.73m^2); Globulin 4.1 g/dL; Glucose 134 mg/dL (74-106); Potassium 4.7 mmol/L (3.5-5.1); Sodium 143 mmol/L (136-145); Total Protein 8.1 g/dL (6.4-8.2)
[2024-10-21] MEDS: DIPHENHYDRAMINE HCL 50 MG/ML VIAL 25 MG IVP (12:59)
[2024-10-21] MEDS: HALOPERIDOL LACTATE 5 MG/ML VIAL IV (13:00)
[2024-10-21 14:47] LABS: Lactate/Lactic Acid 1.4 mmol/L (0.4-2.0)
== END 2024-10-21 21:27 | disposition home or self-care (01) ==
PROVIDERS: Emergency Medicine; Emergency Provider Student in an Organized Health Care Education/Training Program; PCP Family Medicine
DX: R41.82 Altered mental status, unspecified (principal); Z86.59 Personal history of other mental and behavioral disorders; R78.2 Finding of cocaine in blood; F15.10 Other stimulant abuse, uncomplicated; F13.10 Sedative, hypnotic or anxiolytic abuse, uncomplicated
CPT/HCPCS: 36415; 70450; 71045; 72125; 80053; 80307; 80320; 81003; 83605; 83735; 84484; 85025; 85610; 93005; 96361; 96374; 96375; 99285; J1200; J1630; J3360